=== PATIENT | male | born 1995 | race Caucasian/White ===

== ENCOUNTER 2018-06-30 20:07 | Emergency (ER) | payer OTHER ==
[2018-06-30] MEDS: ACETAMINOPHEN 325 MG TAB PO (21:19)
[2018-06-30] MEDS: METHOCARBAMOL 750 MG TAB PO (22:01)
== END 2018-06-30 23:55 | disposition home or self-care (01) ==
LOC: FTE 23:55
DX: N50.812 Left testicular pain (principal); M54.5 Low back pain
CPT/HCPCS: 72100; 76870; 99284-25